=== PATIENT | male | born 1985 | race Caucasian/White ===

== ENCOUNTER 2021-04-10 09:49 | Emergency (ER) | payer SELFPAY ==
[~2021-04-10] VITALS: Ht 177.8 cm; Wt 90.9 kg
[2021-04-10] MEDS ORDERED: DIPHTH,PERTUSS(ACELL),TET TOX 0.5 ML DISP.SYRIN. VAX IM ONE (10:15)
[2021-04-10] MEDS ORDERED: LIDOCAINE 1%/EPI 1:100,000 20 ML VIAL. IJ ONE (10:15)
[2021-04-10] MEDS ORDERED: LIDOCAINE 2%/EPI 1:100,000 20 ML VIAL. ONE (10:17)
[2021-04-10] MEDS ORDERED: LIDOCAINE 2%/EPI 1:100,000 20 ML VIAL. IJ ONE (10:30)
[2021-04-10] MEDS ORDERED: AMOX1TAB11 PO (11:09)
--- NOTE | 2021-04-10 11:09 | PHYS DOC ---
Past History Past Medical History: No Pertinent History (PRANEETH ANDERSON APRN) Past Surgical History: Cholecystectomy, Tonsillectomy Additional Past Surgical Histo: ankle surgery (PRANEETH ANDERSON APRN) Smoking: Non-smoker Alcohol Use: None Drug Use: None (PRANEETH ANDERSON APRN) General Adult EDM: Chief Complaint: ANIMAL BITE HPI: HPI: Patient is a 35-year-old male that presents today with a dog bite. Patient states he was at a walking park today with his friend and his dog and the other dog got into a confrontation he attempted to pull his dog off his friend's dog and the dog bit him in the face. According to the patient the friend's dog is up-to-date on all immunizations, patient states he does not know when his last tetanus shot was. (PRANEETH ANDERSON APRN) Review of Systems: Review of Systems: Constitutional: Denies fever or chills Eyes: Denies change in visual acuity HENT: Laceration to face Respiratory: Denies cough or shortness of breath Cardiovascular: Denies chest pain or edema GI: Denies abdominal pain, nausea, vomiting, bloody stools or diarrhea : Denies dysuria Musculoskeletal: Denies back pain or joint pain Integument: Denies rash Neurologic: Denies headache, focal weakness or sensory changes Endocrine: Denies polyuria or polydipsia Lymphatic: Denies swollen glands Psychiatric: Denies depression or anxiety (PRANEETH ANDERSON APRN) Current Medications: Current Meds: Current Medications Medications (Trade) Dose Ordered Sig/Natty Start Time Stop Time Status Last Admin Dose Admin Diphtheria/ Tetanus/Acell Pertussis (Boostrix) 0.5 ml ONCE ONCE 04/10/21 10:15 04/10/21 10:38 DC Lidocaine/ Epinephrine (Xylocaine 1%-Epi 1:100,000) 20 ml 1X ONCE 04/10/21 10:15 04/10/21 10:38 DC Lidocaine/ Epinephrine (Xylocaine 2%-Epi 1:100,000) 20 ml 1X ONCE 04/10/21 10:30 04/10/21 10:39 DC 04/10/21 10:25 20 ML (PRANEETH ANDERSON APRN) Allergies: Allergies: Allergies Coded Allergies Type Severity Reaction Last Updated Verified No Known Drug Allergies 2/16/22 No (PRANEETH ANDERSON APRN) Physical Exam: PE: Constitutional: Well developed, well nourished, no acute distress, non-toxic appearance. [] HENT: See skin assessment for facial trauma note, no crepitus noted with palpation of the face. Eyes: PERRLA, EOMI, conjunctiva normal, no discharge. [] Neck: Normal range of motion, no tenderness, supple, no stridor. [] Cardiovascular:Heart rate regular rhythm, no murmur [] Lungs & Thorax: Bilateral breath sounds clear to auscultation [] Abdomen: Bowel sounds normal, soft, no tenderness, no masses, no pulsatile masses. [] Skin: 2.5 cm laceration noted to the right cheek area, no active bleeding noted. 1 cm abrasion noted below the 2.5 cm laceration to the right cheek. 1.25 cm laceration noted from the corner of the mouth on the right side extending into the facial fold. This wound does not go all the way to the inner mouth there is no obvious lacerations to the mouth no loose teeth no malocclusion. Abrasions noted to the mid back area as well. Back: No tenderness, no CVA tenderness. [] Extremities: No tenderness, no cyanosis, no clubbing, ROM intact, no edema. [] Neurologic: Alert and oriented X 3, normal motor function, normal sensory function, no focal deficits noted. [] Psychologic: Affect normal, judgement normal, mood normal. [] (PRANEETH ANDERSON APRN) Current Patient Data: Vital Signs: Vital Signs Date Time Temp Pulse Resp B/P (MAP) Pulse Ox O2 Delivery O2 Flow Rate FiO2 04/10/21 10:01 98.2 96 16 151/125 (134) 99 Room Air (PRANEETH ANDERSON APRN) EKG: EKG: [] (PRANEETH ANDERSON APRN) Radiology/Procedures: Radiology/Procedures: Indication: Dog bite with facial lacerations Procedure: Patient was placed in the supine position lidocaine 2% with epinephrine was used to anesthetize the laceration on the face and on the area near the lip, after appropriate anesthetizing was obtained right cheek laceration was irrigated with approximately 70 mL of normal saline, laceration by the right lip area was irrigated with approximately 60 mL of normal saline. Area was cleansed with Betadine solution, laceration on left cheek required 8 interrupted sutures using 6-0 Ethilon. Area near the corner of the mouth on the right side was sutured together using 4 interrupted sutures using 6-0 Ethilon. Total repaired wound length: Right cheek laceration was 2.5 cm, right laceration to the corner of the lip continuing into the facial fold was approximately 1.5 cm in length Complications: Triple antibiotic ointment was placed by the nurse on the wound. (PRANEETH ANDERSON APRN) Heart Score: C/O Chest Pain: N/A Risk Factors: Risk Factors: DM, Current or recent (<one month) smoker, HTN, HLP, family history of CAD, obesity. Risk Scores: Score 0 - 3: 2.5% MACE over next 6 weeks - Discharge Home Score 4 - 6: 20.3% MACE over next 6 weeks - Admit for Clinical Observation Score 7 - 10: 72.7% MACE over next 6 weeks - Early Invasive Strategies (PRANEETH ANDERSON APRN) Course & Med Decision Making: Course & Med Decision Making Pertinent Labs and Imaging studies reviewed. (See chart for details) Sutures placed, patient will need to have the sutures removed in the next 5 days, he will need to cleanse the wounds twice daily with mild soap and water only applying triple antibiotic ointment for the first 24 hours and then after that leave it open to air. Patient will be given Augmentin 875 mg take 1 tablet twice daily for the next 7 days. Patient verbalizes understanding of all the instructions given and is agreeable to the plan of care. (PRANEETH NADERSON APRN) Dragon Disclaimer: Dragon Disclaimer: This electronic medical record was generated, in whole or in part, using a voice recognition dictation system. (PRANEETH ANDERSON APRN) Attending Co-Sign The patient was seen and interviewed as well as examined at the bedside. The chart was reviewed. The case was discussed. Agree with the plan of care. (ERLINDA SOLANO DO) Departure Departure: Impression: Primary Impression: Dog bite of face Qualified Codes: S01.85XA - Open bite of other part of head, initial encounter; W54.0XXA - Bitten by dog, initial encounter Disposition: HOME / SELF CARE / HOMELESS Condition: STABLE Referrals: PCP,NO (PCP) Patient Instructions: Animal Bite, Facial Laceration Additional Instructions: Suture removed in the next 5 days Clean wound twice daily with mild soap and water only applying triple antibiotic ointment for the first 24 hours Augmentin take 1 tablet twice daily for 7 full days Tylenol and/or ibuprofen as needed for pain Ice 20 minutes on 3-4 times daily to those areas to help decrease swelling. Return to the emergency department for any signs and symptoms of infection which may include swelling, redness, warmth, or any foul odor or drainage. Scripts Amoxicillin/Potassium Clav (AMOX TR-K CLV 875-125 MG TAB) 1 Each Tablet 1 TAB PO BID for dog bite, #20 TAB Prov: PRANEETH ANDERSON APRN 04/10/21 PRANEETH ANDERSON APRN Apr 10, 2021 11:09 ERLINDA SOLANO DO Apr 12, 2021 08:33
[2021-04-10 11:15] VITALS: BP 142/81
[2021-04-10] MEDS ORDERED: BACITRACIN ZINC TOPICAL OINT PACKET. TP ONE (11:15)
== END 2021-04-10 11:27 | disposition home or self-care (01) ==
LOC: ER 09:49
DX: S01.411A Laceration without foreign body of right cheek and temporomandibular area, initial encounter (principal); W54.0XXA Bitten by dog, initial encounter; Y93.89 Activity, other specified; Y92.89 Other specified places as the place of occurrence of the external cause; Y99.8 Other external cause status
CPT/HCPCS: 12013; 99283